=== PATIENT | female | born 1995 | race American Indian/Alaskan Native ===

== ENCOUNTER 2023-11-23 00:21 | Emergency (ER) | payer SELFPAY ==
[2023-11-23] MEDS ORDERED: Amoxicillin 500 MG Cap PO ONE (01:09)
[2023-11-23] MEDS ORDERED: Ibuprofen 800 MG Tab PO ONE (01:11)
== END 2023-11-23 01:21 | disposition home or self-care (01) ==
LOC: MW.ED 00:21
DX: J06.9 Acute upper respiratory infection, unspecified (principal); H66.93 Otitis media, unspecified, bilateral
CPT/HCPCS: 99282; A9270; 99283